=== PATIENT | male | born 1975 | race Caucasian/White ===

== ENCOUNTER → 2019-03-18 09:13 | Outpatient (BNVA) | payer MEDICARE, MEDICAID, SELFPAY | PROVIDERS: Family Provider Nurse Practitioner Family; PCP Nurse Practitioner Family; Visit Provider Nurse Practitioner Family | DX: E11.42 Type 2 diabetes mellitus with diabetic polyneuropathy (principal); E78.5 Hyperlipidemia, unspecified; I10 Essential (primary) hypertension; M25.561 Pain in right knee; G89.29 Other chronic pain | CPT/HCPCS: 80053; 80061; 82044; 82550; 83036 ==

== ENCOUNTER 2019-03-30 08:48 | Outpatient (CLI) | payer MEDICARE, MEDICAID, SELFPAY ==
--- NOTE | 2019-03-30 09:02 | XR_ITS ---
WS: [id number] KNEE LEFT TECHNIQUE: 3 views of the left knee CLINICAL INFORMATION: left knee pain COMPARISON: None. FINDINGS: Normal anatomic alignment. Intramedullary femoral jolie in place. Moderate medial and lateral joint spa ce narrowing. No acute fractures. Moderate suprapatellar effusion. Hypertrophic patella. XR/XR knee LT 3V* [id number] IMPRESSION: 1. Moderate degenerative arthritis left knee with medial and lateral joint spa ce narrowing. Hypertrophic patella. 2. Moderate suprapatellar effusion.
== END 2019-03-30 08:49 | disposition home or self-care (01) ==
LOC: RADWPI 08:52
PROVIDERS: Family Provider Nurse Practitioner Family; PCP Nurse Practitioner Family; Visit Provider Nurse Practitioner Family
DX: M17.12 Unilateral primary osteoarthritis, left knee (principal); G89.29 Other chronic pain; M25.562 Pain in left knee; M25.462 Effusion, left knee
CPT/HCPCS: 73562

== ENCOUNTER 2019-04-12 09:09 | Outpatient (CLI) | payer MEDICARE, MEDICAID, SELFPAY ==
--- NOTE | 2019-04-12 09:30 | MR_ITS ---
WS: [id number] MRI LEFT KNEE NONCONTRAST TECHNIQUE: Axial PD, coronal PD fat sat, coronal PD, sagittal PD, and sagittal PD fat-sat images obta ined. CLINICAL INFORMATION: knee COMPARISON: None. FINDINGS: Susceptibility artifact left femur due to intramedullary jolie. ACL is not visualized and likely chroni tova torn. Normal posterior cruciate ligament. Distal quadriceps and patella tendons are intact. Sli ghtly hypertrophic patella. Blunting of the posterior horn medial meniscus with complex horizontal and radial tears extending to the articular surface. This extends to the meniscal root. Additional horizontal tear in the anterior horn extending to the articular surface with blunting. Chronic thinning of the lateral meniscus. No acute appearing lateral meniscal tears. Small suprapatel lar effusion. Loculated popliteal cyst measuring 1.1 x 2.5 x 4.8 cm. Lateral collateral ligament appears intact. Fluid along the medial collateral ligament which appears intact. Moderate chondromalacia involving th e medial and lateral joint compartments with hypertrophic changes along the joint line. Small amount of subchondral edema involving the medial tibial plateau. MR/MR knee LT wo con* [id number] IMPRESSION: 1. Anterior cruciate ligament is not visualized likely chronically torn. 2. Normal posterior cruciate ligament. 3. Extensive complex tear involving the posterior horn medial meniscus extendi ng to the meniscal root and anterior horn. Lateral meniscus is better preserved . 4. Moderate chondromalacia patella with small suprapatellar effusion. 5. Moderate chondromalacia involving the medial and lateral joint compartments . 6. Fluid along the medial collateral ligament which appears intact.
== END 2019-04-12 09:10 | disposition home or self-care (01) ==
LOC: RADSHAW 09:09
PROVIDERS: Family Provider Nurse Practitioner Family; PCP Nurse Practitioner Family; Visit Provider Nurse Practitioner Family
DX: M17.12 Unilateral primary osteoarthritis, left knee (principal); S83.232A Complex tear of medial meniscus, current injury, left knee, initial encounter; X58.XXXA Exposure to other specified factors, initial encounter; M22.42 Chondromalacia patellae, left knee; M25.462 Effusion, left knee
CPT/HCPCS: 73721

== ENCOUNTER → 2019-09-08 09:07 | Outpatient (BNVA) | payer MEDICARE, MEDICAID, SELFPAY | PROVIDERS: Family Provider Nurse Practitioner Family; PCP Nurse Practitioner Family; Visit Provider Nurse Practitioner Family | DX: I10 Essential (primary) hypertension (principal); E11.42 Type 2 diabetes mellitus with diabetic polyneuropathy; Z79.899 Other long term (current) drug therapy; L84 Corns and callosities | CPT/HCPCS: 80053; 82550; 83036 ==

== ENCOUNTER 2019-10-15 13:05 | Outpatient (CLI) | payer MEDICARE, MEDICAID, SELFPAY ==
--- NOTE | 2019-10-15 13:30 | USCV_ITS ---
Sergio Kemp Age: 44 Gender: M : 1975 Exam Date: 10/15/2019 13:10 Ordering Phys: Ethan Murphy DPM Technologist: Bertha Fisher [place] [facility] [place]: SWELLING AND TENDERNESS IN LEGS HISTORY: Swelling of legs PROCEDURES: The venous duplex Doppler examination of both lower extremities was performed in the standard fashion. The following venous structures were evaluated: common femoral vein, profunda vein, proximal portion of the greater saphenous vein, superficial femoral vein, and the popliteal vein. In addition, the posterior tibial and peroneal trunk were evaluated. Serial compression, augmentation maneuvers, and spectral Doppler flow evaluation were performed. FINDINGS: No DVT seen in any vessel examined Ocampo's cyst noted Lt pop fossa CONCLUSIONS No evidence of right lower extremity DVT. No evidence of left lower extremity DVT. Popliteal cyst measuring 3.3 x 1.2cm with internal debris Jr Knowles MD (Electronically Signed) Final Date: 15 October 2019 14:23 S
== END 2019-10-15 13:06 | disposition home or self-care (01) ==
LOC: US 13:05
PROVIDERS: PCP Nurse Practitioner Family; Visit Provider Podiatrist Foot & Ankle Surgery
DX: I73.9 Peripheral vascular disease, unspecified (principal); M79.89 Other specified soft tissue disorders; M71.20 Synovial cyst of popliteal space [Baker], unspecified knee
CPT/HCPCS: 93970

== ENCOUNTER 2019-10-19 12:14 | Outpatient (CLI) | payer MEDICARE, MEDICAID, SELFPAY ==
--- NOTE | 2019-10-19 12:45 | USCV_ITS ---
Sergio Kemp Age: 44 Gender: M : 1975 Exam Date: 10/19/2019 12:42 Ordering Phys: Ethan Murphy DPM Technologist: Leonides Guerrero [place] [facility] [place]: DIABETIC PERIPHERAL NEUROPATHY RIGHT LEFT Brachial 125.00 mmHg Brachial 116.00 mmHg Pressure (mmHg) Waveform Pressure (mmHg) Waveform 131.00 Above Knee 118.00 129.00 Below Knee 122.00 122.00 WELDING OPERATOR 110.00 109.00 DPA 120.00 0.98 Ankle/Brachial Index 0.96 120.00 Pre-Exercise Toe Pressure 121.00 Pre-Exercise Toe/Brachial Index 0.97 0.96 FINDINGS Normal resting ABIs bilaterally Normal resting TBIs bilaterally Blunted dicrotic notch in the PVR waveforms CONCLUSIONS No significant arterial obstruction, based on the above findings Dr Saritha Julian MD FACC (Electronically Signed) Final Date: 21 October 2019 08:11 S
== END 2019-10-19 12:15 | disposition home or self-care (01) ==
LOC: US 12:14
PROVIDERS: PCP Nurse Practitioner Family; Visit Provider Podiatrist Foot & Ankle Surgery
DX: I73.9 Peripheral vascular disease, unspecified (principal); E11.42 Type 2 diabetes mellitus with diabetic polyneuropathy
CPT/HCPCS: 93923

== ENCOUNTER 2019-11-09 06:52 | Outpatient (CLI) | payer MEDICARE, MEDICAID, SELFPAY ==
--- NOTE | 2019-11-09 07:15 | US_ITS ---
WS: [id number] ULTRASOUND ABDOMEN LIMITED CLINICAL INFORMATION: ruq tenderness COMPARISON: None. FINDINGS: Technically difficult examination due to body habitus. Liver Size: Enlarged Craniocaudal length: 21.7 cm. Echogenicity: Normal. Surface nodularity: None. Mass (size and location): None. Bile ducts Intrahepatic ducts: Normal. Common bile duct diameter: 0.3 cm. Gallbladder Normal. Gallstones: None. Gallbladder sludge: None. Gallbladder wall thickening: None. Pericholecystic fluid: None. Sonographic David sign: Absent. Pancreas Normal as visualized. Right kidney: Normal. Hydronephrosis: None. Size: 11.2 cm x 5.9 cm x 5.9 cm. Abdominal aorta and IVC Visualized portions are normal. Ascites: None. US/US gall bladder [id number] IMPRESSION: 1. Hepatomegaly. 2. Gallbladder is normal. 3. Normal common bile duct. 4. No hydronephrosis in right kidney.
== END 2019-11-09 06:53 | disposition home or self-care (01) ==
LOC: US 06:53
PROVIDERS: PCP Nurse Practitioner Family; Visit Provider Nurse Practitioner Family
DX: R10.811 Right upper quadrant abdominal tenderness (principal); R16.0 Hepatomegaly, not elsewhere classified
CPT/HCPCS: 76705

== ENCOUNTER → 2019-11-12 11:05 | Outpatient (BNVA) | payer MEDICARE, MEDICAID, SELFPAY | PROVIDERS: PCP Nurse Practitioner Family; Visit Provider Nurse Practitioner Family | DX: R16.0 Hepatomegaly, not elsewhere classified (principal) | CPT/HCPCS: 80076; 86705; 86706; 86709; 86803; 87340 ==

== ENCOUNTER → 2019-12-06 08:48 | Outpatient (BNVA) | payer MEDICARE, MEDICAID, SELFPAY | PROVIDERS: PCP Nurse Practitioner Family; Visit Provider Internal Medicine | DX: Z11.59 Encounter for screening for other viral diseases (principal) | CPT/HCPCS: 87635 ==

== ENCOUNTER 2019-12-13 08:53 | Day surgery (SDC) | payer MEDICARE, MEDICAID, SELFPAY ==
[2019-12-13 09:09] VITALS: BP 136/85; PULSE 72; RESP 18; TEMP 36.3; O2SAT 96
--- NOTE | 2019-12-13 09:31 | W.PM.OPSUD ---
Surgery/Procedure H&P Update DATE OF PROCEDURE: December 13, 2019 DATE H&P PERFORMED: 12/02/19 PREOP DIAGNOSIS: p PLANNED PROCEDURE: Operation Date: 12/13/19 09:45 Proposed Procedures p EGD/colon [id number] R10.811(Not Applicable) - Obey Nash MD s Colonoscopy(Not Applicable) - Obey Nash MD
[2019-12-13 09:32] LABS: Glucose Point of Care 99 mg/dL (70-110)
[2019-12-13] MEDS: sodium chloride 0.9% 1,000 ML 30 ML IV (09:32)
--- NOTE | 2019-12-13 09:40 | P.ANESASSM_ITS ---
Pre-Anesthetic Assessment Pre-Anesthetic Assessment: Height/Weight: Height 1.78 m Weight 136.078 kg Temp Pulse Resp BP Pulse Ox 97.3 F L 72 18 136/85 96 12/13/19 09:09 12/13/19 09:09 12/13/19 09:09 12/13/19 09:09 12/13/19 09:09 Preop Diagnosis: hematochezia Proposed Procedure: Operation Date: 12/13/19 09:45 Proposed Procedures p EGD/colon 40021 [id number] R10.811(Not Applicable) - Obey Nash MD s Colonoscopy(Not Applicable) - Obey Nash MD Familial anesthetic complications: None Was Beta Aidan taken within 24 hours: N/A Last intake: Intake Last Liquid Date 12/12/19 Last Liquid Time 21:00 Last Solid Date 12/11/19 Last Solid Time 19:00 Social: Social History: Tobacco and No alcohol Exam: Pre-Anes Outpt Exam: alert, oriented x 3, clear to auscultation bilat erally and regular rate & rhythm Airway: Cervical ROM: WNL (limited movement to L) MP: 4 Dentition: Chipped, Loose and Other (poor dentition (patient informed of risk of dental injury)) Additional comments: full wallace Pulmonary: Pulmonary: Sleep apnea (cpap) CV/HEM: CV/HEM: HTN Hepatic: Comments: hepatomegaly GI: GI: GERD Metabolic: Metabolic: DM, Hyperlipidemia and Morbid obesity Neuropsych: Neuropsych: CVA (L side weakness) Anesthetic Plan: ASA status: 4 Anesthesia: MAC Risk of > 500 ml blood loss (7ml/kg in children): No Meds/Allergies Current Medications: Current Medications Generic Name Dose Route Start Last Admin Trade Name Freq PRN Reason Stop Dose Admin Sodium Chloride 1,000 mls @ 30 ml s/hr 12/13/19 09:15 12/13/19 09:32 Sodium Chloride 0.9% IV 30 mls/hr .Q24H ERYN Administration PFSH Anesthesia PFSH: Medical History (Updated 12/02/19 @ 13:55 by Obey Nash MD) HTN (hypertension), benign Hx of stroke without residual deficits Hyperlipemia 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
[2019-12-13 10:58] VITALS: BP 118/63; PULSE 77; RESP 16; TEMP 36.9; O2SAT 94
[2019-12-13 11:13] VITALS: BP 118/63; PULSE 75; RESP 18; O2SAT 95
--- NOTE | 2019-12-13 11:30 | ANE.PACU2 ---
Inpatient post-anesthesia follow up: Airway intact: Yes Vital signs: Temperature 98.5 F Pulse Rate 75 Respiratory Rate 18 Blood Pressure 118/63 Pulse Oximetry 95 Oxygen Delivery Me thod Room Air Oxygen Flow Rate Fraction of Inspir ed Oxygen Hydration adequate: Yes Nausea and vomiting: No Pain level: 1 Mental status: Baseline
[2019-12-14 10:07] LABS: H. Pylori / CLO Test Positive
== END 2019-12-13 11:30 | disposition home or self-care (01) ==
PROVIDERS: PCP Nurse Practitioner Family; Visit Provider Internal Medicine
PROC: 0DJ08ZZ Inspection of Upper Intestinal Tract, Via Natural or Artificial Opening Endoscopic (ICD-10-PCS; CPT 43235; principal; 2019-12-13 09:45)
PROC: 0DJD8ZZ Inspection of Lower Intestinal Tract, Via Natural or Artificial Opening Endoscopic (ICD-10-PCS; CPT 45378; 2019-12-13 09:45)
DX: R10.811 Right upper quadrant abdominal tenderness (principal); K92.1 Melena; K29.70 Gastritis, unspecified, without bleeding; G47.30 Sleep apnea, unspecified; I10 Essential (primary) hypertension; K21.9 Gastro-esophageal reflux disease without esophagitis; E78.5 Hyperlipidemia, unspecified; E66.01 Morbid (severe) obesity due to excess calories; Z68.41 Body mass index [BMI] 40.0-44.9, adult; I69.854 Hemiplegia and hemiparesis following other cerebrovascular disease affecting left non-dominant side; E11.40 Type 2 diabetes mellitus with diabetic neuropathy, unspecified; F17.210 Nicotine dependence, cigarettes, uncomplicated; Z79.84 Long term (current) use of oral hypoglycemic drugs
CPT/HCPCS: 12345; 36416; 43239; 45378; 82962; 87077; J2704; J7030

== ENCOUNTER 2020-02-21 07:49 | Outpatient (CLI) | payer MEDICARE, MEDICAID, SELFPAY ==
--- NOTE | 2020-02-21 08:00 | NM_ITS ---
WS: [id number] NUCLEAR MEDICINE HIDA SCAN WITH GALLBLADDER EJECTION FRACTION HISTORY: R10.811 - Right upper quadrant abdominal tenderness COMPARISON: Gallbladder ultrasound 11/09/2019 TECHNIQUE: The patient was intravenously injected with 7.8 mCi of TC99m Mebrofenin. Immediate imaging over the right upper quadrant was followed by 5 minute image and additional images for a total of 60 minutes. Normal uptake of radiotracer throughout the liver. Activity identified in the gallbladder at 20 minutes and well distended by 60 minutes. Activity in the proximal small bowel was seen by 15 minutes. Good washout of the radiotracer from the liver by 60 minutes. The patient then drank 8 ounces of Ensure Plus. Ejection fraction at 60 minutes was 65%. Normal GB ej ection fraction is 35-75%. Post fatty meal symptoms: None. NM/NM hepatobiliary w phar* [id number] IMPRESSION: 1. Normal HIDA scan. 2. Normal gallbladder ejection fraction.
== END 2020-02-21 07:50 | disposition home or self-care (01) ==
PROVIDERS: PCP Nurse Practitioner Family; Visit Provider Surgery
DX: R10.811 Right upper quadrant abdominal tenderness (principal)
CPT/HCPCS: 78227; A9537

== ENCOUNTER → 2020-04-05 11:36 | Outpatient (BNVA) | payer MEDICARE, MEDICAID, SELFPAY | PROVIDERS: PCP Nurse Practitioner Family; Visit Provider Nurse Practitioner Family | DX: E55.9 Vitamin D deficiency, unspecified (principal); R60.0 Localized edema; I10 Essential (primary) hypertension; E11.42 Type 2 diabetes mellitus with diabetic polyneuropathy; I89.0 Lymphedema, not elsewhere classified | CPT/HCPCS: 80053; 82306; 83036; 83880 ==

== ENCOUNTER 2020-04-26 06:00 | Outpatient (RCR) | payer MEDICARE, MEDICAID, SELFPAY | END 2020-04-30 23:59 | disposition home or self-care (01) | LOC: SPT 06:00 | PROVIDERS: PCP Nurse Practitioner Family; Referring Provider Nurse Practitioner Family; Visit Provider Nurse Practitioner Family | DX: I89.0 Lymphedema, not elsewhere classified (principal) | CPT/HCPCS: 97140; 97162 ==

== ENCOUNTER 2020-05-01 06:00 | Outpatient (RCR) | payer MEDICARE, MEDICAID, SELFPAY | END 2020-05-31 23:59 | disposition home or self-care (01) | LOC: SPT 06:00 | PROVIDERS: PCP Nurse Practitioner Family; Referring Provider Nurse Practitioner Family; Visit Provider Nurse Practitioner Family | DX: I89.0 Lymphedema, not elsewhere classified (principal) | CPT/HCPCS: 97140 ==

== ENCOUNTER → 2020-07-07 08:40 | Outpatient (BNVA) | payer MEDICARE, MEDICAID, SELFPAY | PROVIDERS: PCP Nurse Practitioner Family; Visit Provider Nurse Practitioner Family | DX: E11.9 Type 2 diabetes mellitus without complications (principal); I10 Essential (primary) hypertension | CPT/HCPCS: 80053; 82043; 83036 ==

== ENCOUNTER → 2021-03-16 11:43 | Outpatient (BNVA) | payer MEDICARE, MEDICAID, SELFPAY | PROVIDERS: PCP Nurse Practitioner Family; Visit Provider Nurse Practitioner Family | DX: I10 Essential (primary) hypertension; E78.5 Hyperlipidemia, unspecified; E55.9 Vitamin D deficiency, unspecified; E11.42 Type 2 diabetes mellitus with diabetic polyneuropathy | CPT/HCPCS: 80053; 80061; 82306; 83036 ==

== ENCOUNTER → 2021-06-15 10:08 | Outpatient (BNVA) | payer MEDICARE, MEDICAID, SELFPAY | PROVIDERS: PCP Nurse Practitioner Family; Visit Provider Nurse Practitioner Family | DX: I10 Essential (primary) hypertension (principal); E11.9 Type 2 diabetes mellitus without complications; E78.5 Hyperlipidemia, unspecified; E11.42 Type 2 diabetes mellitus with diabetic polyneuropathy | CPT/HCPCS: 80053; 80061; 83036 ==

== ENCOUNTER → 2021-10-11 09:26 | Outpatient (BNVA) | payer MEDICARE, MEDICAID, SELFPAY | PROVIDERS: PCP Nurse Practitioner Family; Visit Provider Nurse Practitioner Family | DX: E11.9 Type 2 diabetes mellitus without complications (principal); I10 Essential (primary) hypertension; E55.9 Vitamin D deficiency, unspecified; E11.42 Type 2 diabetes mellitus with diabetic polyneuropathy; E78.5 Hyperlipidemia, unspecified | CPT/HCPCS: 80053; 80061; 82043; 82306; 83036 ==

== ENCOUNTER → 2022-03-13 09:43 | Outpatient (BNVA) | payer MEDICARE, MEDICAID, SELFPAY | PROVIDERS: PCP Nurse Practitioner Family; Visit Provider Nurse Practitioner Family | DX: E55.9 Vitamin D deficiency, unspecified (principal); E78.5 Hyperlipidemia, unspecified; I10 Essential (primary) hypertension; E11.9 Type 2 diabetes mellitus without complications | CPT/HCPCS: 80053; 80061; 82043; 82306; 83036 ==

== ENCOUNTER → 2022-09-19 11:17 | Outpatient (BNVA) | payer MEDICARE, MEDICAID, SELFPAY | PROVIDERS: PCP Nurse Practitioner Family; Visit Provider Nurse Practitioner Family | DX: E78.5 Hyperlipidemia, unspecified (principal); E11.42 Type 2 diabetes mellitus with diabetic polyneuropathy; I10 Essential (primary) hypertension; E55.9 Vitamin D deficiency, unspecified | CPT/HCPCS: 80053; 80061; 82306; 83036; 85025 ==

== ENCOUNTER → 2022-10-21 08:34 | Outpatient (BNVA) | payer MEDICARE, MEDICAID, SELFPAY | PROVIDERS: PCP Nurse Practitioner Family; Visit Provider Nurse Practitioner Family | DX: E87.6 Hypokalemia (principal) | CPT/HCPCS: 80053 ==

== ENCOUNTER 2023-02-10 12:39 | Outpatient (CLI) | payer MEDICARE, MEDICAID, SELFPAY ==
--- NOTE | 2023-02-10 13:00 | MR_ITS ---
WS: [id number] MRI LEFT SHOULDER HISTORY: S49.92XA - Unspecified injury of left shoulder and upper ... COMPARISON: None available. TECHNIQUE: Multiplanar sequences of the shoulder joint are submitted. Quality of this examination is significantly compromised by motion on all sequences. Severe AC joint arthritis encroaching upon the myotendinous insertion of the supraspinatus. Bone and soft tissue hypertrophy and narrowing of the AC joint. Moderate subacromial impingement. No os acromi on. Biceps tendon is not placed normally in the bicipital groove. Mildly high riding humeral head. Mild distal supraspinatus tendinopathy. No muscle atrophy or edema. The subscapularis tendon is abnormal. Severe narrowing of the coracohumeral interval. Suspect there i s at least partial tear of the subscapularis tendon. There is increased edema surrounding the subscap ularis tendon at the level of the coracohumeral interval. There is an osteophyte from the humeral hea d displacing the subscapularis tendon. There is a small glenohumeral joint effusion. Increased T2 signal in the anterior and superior labrum . IMPRESSION: 1. Quality of this examination is significantly compromised by motion artifact on all sequences. 2. Severe AC joint arthritis with soft tissue and osteophyte encroachment upon the myotendinous porti on of the supraspinatus. 3. Distal supraspinatus tendinopathy. 4. At least a partial tear in the distal subscapularis tendon with marked narrowing of the coracohume ral interval. 5. Dislocated biceps tendon. 6. Anterior superior labrum tears.
== END 2023-02-10 12:40 | disposition home or self-care (01) ==
LOC: RAD 12:39
PROVIDERS: PCP Nurse Practitioner Family; Visit Provider Nurse Practitioner Family
DX: S46.812A Strain of other muscles, fascia and tendons at shoulder and upper arm level, left arm, initial encounter (principal); S43.432A Superior glenoid labrum lesion of left shoulder, initial encounter; X58.XXXA Exposure to other specified factors, initial encounter; M19.012 Primary osteoarthritis, left shoulder; M25.712 Osteophyte, left shoulder; M67.814 Other specified disorders of tendon, left shoulder
CPT/HCPCS: 73221

== ENCOUNTER → 2023-03-17 11:22 | Outpatient (BNVA) | payer MEDICARE, MEDICAID, SELFPAY | PROVIDERS: PCP Nurse Practitioner Family; Referring Provider Nurse Practitioner Family; Visit Provider Specialist | DX: S49.92XA Unspecified injury of left shoulder and upper arm, initial encounter; X50.0XXA Overexertion from strenuous movement or load, initial encounter | CPT/HCPCS: 73030; 99204 ==

== ENCOUNTER 2023-03-31 06:00 | Outpatient (RCR) | payer MEDICARE, MEDICAID, SELFPAY | END 2023-04-02 23:59 | disposition home or self-care (01) | LOC: APT 06:00 | PROVIDERS: Visit Provider Specialist | DX: M25.512 Pain in left shoulder (principal) | CPT/HCPCS: 97110; 97161 ==

== ENCOUNTER 2023-04-03 06:00 | Outpatient (RCR) | payer MEDICARE, MEDICAID, SELFPAY | END 2023-05-01 23:59 | disposition home or self-care (01) | LOC: APT 06:00 | PROVIDERS: Visit Provider Specialist | DX: M25.512 Pain in left shoulder (principal) | CPT/HCPCS: 97110; 97112; 97140; 97530 ==

== ENCOUNTER 2023-04-10 12:51 | Outpatient (CLI) | payer MEDICARE, MEDICAID, SELFPAY ==
--- NOTE | 2023-04-10 12:56 | MR_ITS ---
WS: [id number] MRI LEFT SHOULDER ARTHROGRAM, pre and post arthrogram imaging. HISTORY: left shoulder injury COMPARISON: Prior MRI 02/10/2023 TECHNIQUE: Pre and postcontrast imaging. Gadolinium mixture was injected under fluoroscopy. Coronal T 1 fat sat, sagittal T2 fat sat, coronal T2 fat sat, axial proton density, axial T1 nonfat saturation views are submitted. Prearthrogram: Severe AC joint arthritis with encroachment upon the myotendinous portion of the supra spinatus. AC joint is narrowed and contains fluid. Mild subacromial impingement. Biceps tendon is not located in the bicipital groove. Biceps tendon is external to the groove consistent with the disloca seven tendon with increased fluid in the tendon sheath. No os acromion. No muscle atrophy or tendinopat hy. No edema. Thin linear area of increased signal within the superior labrum. Post arthrogram: Good contrast injection of the joint. There is no extravasation of contrast other th an along the expected needle tract. There is no rotator cuff tear identified. Reidentified is the dis located biceps tendon. There is a very tiny amount of increased T2 signal extending into the superior labrum consistent with a focal localized tear. IMPRESSION: 1. Severe AC joint arthritis with encroachment upon the myotendinous portion of the supraspinatus. 2. No rotator cuff tear. 3. Dislocated biceps tendon with increased fluid in the tendon sheath. 4. Very small focal superior labral tear with adjacent edema in the soft tissues.
== END 2023-04-10 12:52 | disposition home or self-care (01) ==
LOC: RAD 12:51
PROVIDERS: Visit Provider Specialist
DX: S49.92XD Unspecified injury of left shoulder and upper arm, subsequent encounter (principal); X58.XXXD Exposure to other specified factors, subsequent encounter
CPT/HCPCS: 23350; 73223; 77002; 80053; 80061; 83036; 85025; A9577; Q9966

== ENCOUNTER 2023-05-02 06:00 | Outpatient (RCR) | payer MEDICARE, MEDICAID, SELFPAY | END 2023-06-01 23:59 | disposition home or self-care (01) | LOC: APT 06:00 | PROVIDERS: PCP Nurse Practitioner Family; Visit Provider Specialist | DX: S46.112A Strain of muscle, fascia and tendon of long head of biceps, left arm, initial encounter (principal); X50.0XXA Overexertion from strenuous movement or load, initial encounter; M75.52 Bursitis of left shoulder; M19.012 Primary osteoarthritis, left shoulder | CPT/HCPCS: 97110; 97112; 97530; 99214 ==

== ENCOUNTER 2023-06-12 11:58 | Day surgery (SDC) | payer MEDICARE, MEDICAID, SELFPAY ==
[2023-06-12] VITALS (10 sets, daily range): BP systolic 105–151; BP diastolic 60–86; PULSE 56–82; RESP 17–22; TEMP 36.2–36.6; O2SAT 91–96; BMI 43.7
[2023-06-12] MEDS: acetaminophen 1,000 MG/100 ML PIGGYBACK 400 MG IV (12:23)
[2023-06-12] MEDS: ketorolac 30 mg/mL INJ IVP (12:24)
[2023-06-12] MEDS: sodium chloride 0.9% 1,000 ML 30 ML IV (12:24)
[2023-06-12] MEDS: scopolamine 1.5 Patch 1 PATCH TRANSDERMA (12:25)
--- NOTE | 2023-06-12 12:57 | W.PM.OPSFHP ---
Same Day Surgery H&P Indication for Procedure/HPI DATE OF PROCEDURE: June 12, 2023 CHIEF COMPLAINT/INDICATIONFOR SURGICAL PROCEDURE: Left shoulder dislocating bicep tendon tear,, AC joint arthritis, subacromial impingement labral tear PREOP DIAGNOSIS: Left shoulder dislocating bicep tendon tear,, AC joint arthritis, subacromi PLANNED PROCEDURE: Operation Date: 06/12/23 14:15 Proposed Procedures p Bicep Tenotomy versus tenodesis(Left) - Vargas Villalta DO s AC Joint Resection/ reconstruction(Left) - DO shahram Katz Subacromial Decompression(Left) - DO shahram Katz Shoulder Arthroscopy(Left) - Vargas Villalta DO Medications/Allergies* Home Medications Medication Instructions Recorded Confirmed Type cholecalciferol (vitamin D3) 50 50 mcg PO DAILY 12/13/19 06/11/23 History mcg (2,000 unit) tablet (Vitamin D3) aspirin 81 mg tablet,delayed 81 mg PO DAILY 01/03/20 06/11/23 History release (Adult Aspirin Regimen) empagliflozin 25 mg tablet 25 mg PO DAILY 06/11/23 06/11/23 History (Jardiance) esomeprazole magnesium 40 mg 40 mg PO DAILY 06/11/23 06/11/23 History capsule,delayed release furosemide 40 mg tablet 40 mg PO DAILY 06/11/23 06/11/23 History lisinopril 20 mg tablet 20 mg PO BID 06/11/23 06/11/23 History lovastatin 40 mg tablet 40 mg PO DAILY 06/11/23 06/11/23 History nifedipine 60 mg tablet,extended 60 mg PO DAILY 06/11/23 06/12/23 History release potassium chloride 20 mEq 20 meq PO DAILY 06/11/23 06/11/23 History tablet,extended release Allergies/Adverse Reactions Allergy/AdvReac Type Severity Reaction Status Date / Time No Known Allergies Allergy Verified 06/12/23 12:13 Current Medications: Generic Name Dose Route Start Last Admin Trade Name Freq PRN Reason Stop Dose Admin Sodium Chloride 1,000 mls @ 30 mls/hr 06/12/23 12:15 06/12/23 12:24 Sodium Chloride 0.9% IV 06/13/23 12:14 30 mls/hr .Q24H ERYN Administration Pertinent History/Comorbid Conditions* Medical History (Updated 05/06/23 @ 22:22 by Vargas Villalta DO) HTN (hypertension), benign Hx of stroke without residual deficits Hyperlipemia 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 Surgical History (Updated 02/08/20 @ 15:26 by Cy Lopez MD) H/O circumcision H/O facial fracture repair H/O carpal tunnel repair left with ganglion cyst removal H/O esophagogastroduodenoscopy 2019 History of appendectomy 2019 H/O colonoscopy History of hip surgery Family History (Updated 02/08/20 @ 15:11 by Pat Otto LPN) Diabetes CAD (coronary artery disease) Cancer Hypertension Denies family history of Anesthesia complication Bleeding disorder Social History Smoking and tobacco/nicotine status: former use of tobacco/nicotine Alcohol intake: former Substance/Drug Use: current Substance/Drug use frequency: daily Adopted: No Lives independently: Yes Household members: none Housing: House Marital status: Single Number of children: 1 service: No Pertinent Exam Findings alert, oriented x 3, operative site marked and procedure specific exam findings Please refer to last office note on 05/02/2023 for detailed orthopedic examination: Shoulder exam: C-Spine ROM: normal with no pain Spurlings: negative ROM: Passive up to 180 Active [id number] TTP AC joint, over bicipital groove as well as lateral and posterior aspect of the shoulder Internal Rotation 5 out of 5 with elbows at the side External Rotation 5 out of 5 with elbows at the side O'Briens: Positive Jobes: Pain with Jobes but good strength Vasquez Impingement: Positive Speeds Test: Positive Crossover/Neers test: Positive with tenderness over AC joint Recommendations Surgery/Procedure today Other Plans: Plan to proceed to the OR today for left shoulder diagnostic and surgical arthroscopy with subacromial decompression, AC joint resection and biceps tenotomy versus tenodesis. Patient understands the ins and outs procedure, the risk benefits complication alternatives of surgery and through shared decision make elects proceed with surgical intervention. All questions answered. Coding Level of Care Code Acute Code for Teo Quinonez
[2023-06-12 12:59] LABS: Anion Gap 15.5 (5-19); Blood Urea Nitrogen 12 mg/dL (6-20); Calcium 9.1 mg/dL (8.5-10.5); Carbon Dioxide 25 mmol/L (22-29); Chloride 104 mmol/L (98-107); Creatinine Clr Calc Pharmacy 250.5998; Glomerular Filtration Rate 176.7 mL/min (90-130); Glucose 121 mg/dL (65-115); Osmolality Calculated 293 mOsm/kg (285-295); Potassium 3.5 mmol/L (3.5-5.1); Sodium 141 mmol/L (136-145)
--- NOTE | 2023-06-12 13:19 | P.ANESASSM_ITS ---
Pre-Anesthetic Assessment Height/Weight: Height 1.78 m Weight 138.346 kg Temp Pulse Resp BP Pulse Ox O2 Del Method 97.8 F 82 18 151/86 94 Room Air 06/12/23 12:11 06/12/23 12:11 06/12/23 12:11 06/12/23 12:11 06/12/23 12:11 06/12/23 12:14 Preop Diagnosis: Left shoulder dislocating bicep tendon tear,, AC joint arthritis, subacromi Operation Date: 06/12/23 14:15 Proposed Procedures p Bicep Tenotomy versus tenodesis(Left) - Vargas [place], DO s AC Joint Resection/ reconstruction(Left) - Vargas [place], DO s Subacromial Decompression(Left) - Vargas [place], DO s Shoulder Arthroscopy(Left) - Vargas [place], DO Familial anesthetic complications: none Was Beta Aidan taken within 24 hours: N/A Was Clonidine taken within 24 hours: N/A Last intake: Intake Last Liquid Date 06/12/23 Last Liquid Time 08:00 Last Solid Date 06/11/23 Last Solid Time 20:30 Social No alcohol and No tobacco Exam alert, oriented x 3, clear to auscultation bilaterally and regular rate & rhythm Airway Submandibular: within normal limits Cervical ROM: within normal limits Mallampati: Class II Dentition: chipped Comments: Comments: Very poor dentition, most chipped or missing, wallace Pulmonary Asthma and Chronic Obstructive Pulmonary Disease CV/HEM Hypertension Metabolic Diabetes Mellitus, Hyperlipidemia and Morbid Obesity Anesthetic Plan ASA status: 3 Anesthesia: General and Regional (specify below) (Left interscalene nerve blk) Medications/Allergies Home Medications Medication Instructions Recorded Confirmed Last Taken Type blood-glucose meter (Blood Glucose #1 ea 03/18/19 05/02/23 Unknown Rx Monitoring kit) cholecalciferol (vitamin D3) 50 50 mcg PO DAILY 12/13/19 06/11/23 06/11/23 History mcg (2,000 unit) tablet (Vitamin D3) aspirin 81 mg tablet,delayed 81 mg PO DAILY 01/03/20 06/11/23 06/06/23 History release (Adult Aspirin Regimen) empagliflozin 25 mg tablet 25 mg PO DAILY 06/11/23 06/11/23 06/11/23 History (Jardiance) esomeprazole magnesium 40 mg 40 mg PO DAILY 06/11/23 06/11/23 06/11/23 History capsule,delayed release furosemide 40 mg tablet 40 mg PO DAILY 06/11/23 06/11/23 06/10/23 History lisinopril 20 mg tablet 20 mg PO BID 06/11/23 06/11/23 06/11/23 History lovastatin 40 mg tablet 40 mg PO DAILY 06/11/23 06/11/23 06/10/23 History nifedipine 60 mg tablet,extended 60 mg PO DAILY 06/11/23 06/12/23 06/12/23 06:00 History release potassium chloride 20 mEq 20 meq PO DAILY 06/11/23 06/11/23 06/11/23 History tablet,extended release hydrocodone 7.5 mg-acetaminophen 1 tab PO Q6H PRN pain postop 7 06/12/23 Unknown Rx 325 mg tablet days #28 tabs Allergies Allergy/AdvReac Type Severity Reaction Status Date / Time No Known Allergies Allergy Verified 06/12/23 12:13 Current Medications Generic Name Dose Route Start Last Admin Trade Name Freq PRN Reason Stop Dose Admin Sodium Chloride 1,000 mls @ 30 mls/hr 06/12/23 12:15 06/12/23 12:24 Sodium Chloride 0.9% IV 06/13/23 12:14 30 mls/hr .Q24H ERYN Administration PFSH Anesthesia Medical History HTN (hypertension), benign Hx of stroke without residual deficits Hyperlipemia 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 Surgical History H/O circumcision H/O facial fracture repair H/O carpal tunnel repair left with ganglion cyst removal H/O esophagogastroduodenoscopy 2019 History of appendectomy 2019 H/O colonoscopy History of hip surgery Family History Other CAD (coronary artery disease) Cancer Diabetes Hypertension Denies family history of Anesthesia complication Bleeding disorder Social History (Updated 05/02/23 @ 10:03 by Bev Feng LPN) Smoking and tobacco/nicotine status: former use of tobacco/nicotine Alcohol intake: former Substance/Drug Use: current Substance/Drug use frequency: daily Adopted: No Lives independently: Yes Household members: none Housing: House Marital status: Single Number of children: 1 service: No Data Anesthesia 06/12/23 12:20 BMP 06/12/23 12:20 Sodium 141 Potassium 3.5 Chloride 104 Carbon Dioxide 25 BUN 12 Creatinine 0.5 L Glucose 121 H Calcium 9.1 Cardiac Studies: 2 No Data to Display Anesthesia Procedures Nerve Block Nerve Block 1: Main Anesthesia: general anesthesia Time Out Performed: Yes Consent: requested by attending/covering physician, from patient, risks and benefits reviewed and patient agrees to proceed Nerve block location: interscalene (left) Anesthesia monitors applied: pulse oximetry, EKG, BP cuff and oxygen Nerve block position: semi sitting Anesthetic Used: ropivicaine 0.5% Amount of anesthesia used (mL): 0 Ultrasound used to: recognize landmarks and visualize and ID brachial plexus Nerve Stimulator Used?: Yes Interscalene/Femoral BLK: 2 stimuplex 22 g needle used for position and inplane approach Patient Tolerated Procedure: well Additional Comments: Attempted left interscalene blk with US and nerve stimulator without success, could not visualize appropriate neural structures nor illicit a stimulator response, patient tolerated well.
[2023-06-12] MEDS: ceFAZolin 3,000 MG in sodium chloride 0.9% (plus) 100 ML 200 MG IV (13:20)
[2023-06-12] MEDS: EPINEPHrine 1 mg/mL INJ 2 MG XX (14:28)
--- NOTE | 2023-06-12 15:27 | P.BOP_ITS ---
Date of Procedure: [06/12/2023] Surgeon: Vargas Villalta DO Stave Cutting Supervisor(s): None Procedure(s) performed: Left shoulder diagnostic and surgical arthroscopy with biceps tenodesis Left shoulder diagnostic and surgical arthroscopy with labral debridement Left shoulder diagnostic and surgical arthroscopy with subacromial decompression (bursectomy and acromioplasty) Left shoulder diagnostic and surgical arthroscopy with AC joint resection (distal clavicle excision) Findings of the procedure(s): Patient found to have unstable bicep anchor with SLAP tear significant inflammation around the bicep tendon underwent bicep tenodesis without any issues or complications patient had procedure went as planned with no issues or complications. Placed in an UltraSling and will be nonweightbearing no active range of motion left shoulder for the next 2 weeks follow-up in 2 weeks. Estimated blood loss: 5 mm Specimen(s) removed: None Post-operative diagnosis: Left shoulder SLAP tear with long head bicep tendon instability, subacromial impingement, circumferential labral tearing, AC joint arthritis
--- NOTE | 2023-06-12 15:29 | P.OP_ITS ---
Operative Report Date of procedure: June 12, 2023 Surgeon: Vargas Villalta DO Procedure: Preoperative diagnosis: Left shoulder bicep tendon tear/instability Superior labral tear Subacromial impingement AC joint arthritis post-op diagnosis:? Left?shoulder?labral tear Left?shoulder?biceps tendon tear Left?shoulder?AC joint arthritis Left?shoulder?subacromial bursitis/impingement Procedure done: Left shoulder diagnostic and surgical arthroscopy with biceps tenodesis Left shoulder diagnostic and surgical arthroscopy with labral debridement Left shoulder diagnostic and surgical arthroscopy with subacromial decompression (bursectomy and acromioplasty) Left shoulder diagnostic and surgical arthroscopy with AC joint resection (distal clavicle excision) Surgeon: Vargas Villalta DO Estimated blood loss: [5 ]mL IV fluids: See anesthesia record Implants: Arthrex Biceps Tenodesis intra-articular loop and tack kit Complications: None Condition: stable Disposition: same day Brief History: Patient been seen and worked up in the outpatient setting for Left?shoulder?pain.? Pt had an MRI which showed findings below.? Patient's failed conservative treatment and has weakness.? We talked about treatment options far as nonoperative and operative intervention..? We talked about risk benefits complication alternatives surgical nonsurgical treatment options.? Understanding risk of surgery pt agrees to proceed with surgical intervention.? All questions have been answered at this time.? Patient elects proceed with surgery and consent obtained in office. IMPRESSION: 1. Severe AC joint arthritis with encroachment upon the myotendinous portion of the supraspinatus. 2. No rotator cuff tear. 3. Dislocated biceps tendon with increased fluid in the tendon sheath. 4. Very small focal superior labral tear with adjacent edema in the soft tissues. Procedure: Patient seen evaluated in the preoperative holding area.? Consent reviewed and signed with patient.? Once again reviewed patient's MRI results as well as? planned surgical intervention.? Correct extremity marked.? Patient seen evaluated by anesthesia department received regional anesthesia.? Once ready for surgery was taken back to the operative suite.? Patient then subsequently underwent anesthesia per the anesthesia department was transported onto the OR table.? Patient was then placed into a lateral decubitus position with a beanbag and was appropriately secured to the bed.? All bony prominences well-padded.? Patient then had the Left upper extremity was then prepped and draped in stand yoly orthopedic fashion.? Patient received appropriate preoperative antibiotics.? Final timeout performed. The Left upper extremity was then held in hanging from traction utilizing sterile technique.? Next started with standard diagnostic and surgical arthroscopy with posterior portal position introduced arthroscope into the glenohumeral joint.? Visualized the glenohumeral joint I then introduced a spinal needle within the rotator cuff interval to confirm appropriate anterior portal placement.? Once this was confirmed I then made my small incision and then introduced my arthroscopic shaver into the glenohumeral joint.? After thorough debridement was clearly evident patient had a significant erythema as well as positive liftoff sign of the biceps anchor intact intra-articular biceps tendon but noticeable bicep tendon instability. Given patient's age as well as instability bicep tendon and SLAP tear of the labrum plan for a bicep tenodesis. After flushing the joint fluid, was clearly evident patient had biceps tendon tearing as well as Superior labral tear. Patient had appreciable unstable biceps anchor most pronounced in the superior labrum. Given there appears to be healthy intra-articular tendon plan was for an intra-articular biceps tenodesis at the superior portion as it enters the intertubercular groove. Thermal wand introduced into the rotator interval. I then release of the rotator interval to have appropriate visualization and the ability to perform biceps tenodesis. At this point I established a purple passport cannula which was introduced. Next I performed an Arthrex loop and tap biceps tenodesis. Passer was then made around the tendon luggage tag stitch around and then thru the tendon and around twice I then utilized a thermal wand to release the biceps tendon at the anchor to perform with tenotomy. I then loaded with suture onto an Arthrex 4.75 swivel lock suture anchor. A punch was then placed in appropriate position at the entry point into the intertubercular groove just superior to the subscapularis tendon. Punch was then introduced to the appropriate depth. The suture loaded on the swivel lock was then advanced held under appropriate tension and shoulder lock anchor was then advanced and had excellent fixation. Excess suture was then cut biceps tenodesis was complete. I then utilized a thermal wand to seal the edges of the superior labrum. Introduced a thermal wand and a biceps tenotomy was performed to completion With appropriate release.? Next I evaluated the subscapularis tendon which was intact and no evidence of t ear. ?Next there was significant labral tearing at biceps anchor and circumferential.? ? I then subsequently utilized a a arthroscopic shaver and thermal wand to perform a labral debridement.? This point time I then visualized the glenohumeral joint.? The glenohumeral joint was found to have grade 1-2? chondromalacia throughout.? Infrapatellar pouch was free of loose bodies from viewing the posterior portal.? Rotator cuff was inspected superiorly and found to have negative escape bubble sign and no evidence of rotator cuff tendon tear was noted. ?This completed my work within the glenohumeral joint all fluid was suctioned free of the joint.? ?Next I reintroduced the arthroscope posteriorly.? And went to the subacromial space.? I established my lateral working portal at the site of which my spinal needle was marking of the rotator cuff tear.? Thermal wand was then introduced laterally and then I subsequently performed extensive bursectomy of the subacromial space.? Patient had a large anterior bone spur.? At this point time I proceeded with my AC joint resection thermal wand was used and track to the anterior edge of the acromion and then tracked all the way to the AC joint.? On ce identified the AC joint this was very arthritic in nature.? Thermal wand was placed anteriorly to establish appropriate plane for AC joint resection.? Once appropriate margins and anterior inferior and anterior capsule was released I then introduced arthroscopic shaver and a bur and performed AC joint resection of both the acromion to co- plane at the AC joint and a distal clavicle resection was then performed totaling 1 cm in size and was confirmed.? This completed my AC joint resection and I then introduced the arthroscopic shaver laterally while continuing to view posteriorly.? I then performed an acromioplasty to complete my subacromial decompression.? This completed subacromial decompression I then utilized arthroscopic shaver to debride the bursa completely and had direct visualization of the rotator cuff tendon which was found to be intact ?I then switched the arthroscope to the lateral portal and once again confirmed appropriate subacromial decompression of anterior spurring and subacromial impingement as well as confirming no evidence of rotator cuff tear. ?? This completed the surgery.? All fluid was suctioned from the?shoulder.? All instruments were removed.? The lateral incision was then closed with nylon stitches.? As well as the portal sites closed with portal nylon stitches.? Xeroform 4 x 4's ABD and tape was then applied to the Left?shoulder?and was pl aced into a?shoulder?abduction pillow sling for bicep tenodesis.? Patient was then awakened from anesthesia and then taken back to PACU in stable condition.? Patient tolerated procedure without any issues. Disposition: Patient taken back in stable condition recovering well.? Dressings on in place clean dry and intact.? Will be nonweightbearing to the Left upper extremity.? Follow bicep tenodesis protocol.? Patient to follow-up with me in the office in 2 weeks.? Patient will receive appropriate discharge instruction as well as pain medication postoperatively.? All questions answered.? We will contact the office for any questions or concerns.
[2023-06-12] MEDS: HYDROcodone-acetaminophen 7.5-325 mg Tablet 1 TAB PO (16:05)
--- NOTE | 2023-06-12 16:24 | SUR.PREOP ---
1300-Time out was performed at bedside in [facility]PS for a block with Dr Masterson. Block was not completed as anatomy was not suited for providing image on ultrasound for administering block.
--- NOTE | 2023-06-12 17:24 | ANE.PACU2 ---
Inpatient post-anesthesia follow up: Airway intact: Yes Vital signs: Temperature 97.4 F Pulse Rate 73 Respiratory Rate 18 Blood Pressure 143/70 Pulse Oximetry 93 Oxygen Delivery Me thod Room Air Oxygen Flow Rate 2 Fraction of Inspir ed Oxygen Hydration adequate: Yes Nausea and vomiting: No Pain level: 3 Mental status: Baseline
[2023-06-13 09:11] LABS: Glucose Point of Care 119 mg/dL (70-110)
== END 2023-06-12 16:55 | disposition home or self-care (01) ==
PROVIDERS: Anesthesiology; PCP Nurse Practitioner Family; Visit Provider Student in an Organized Health Care Education/Training Program
PROC: (CPT 23405; principal; 2023-06-12 13:55)
PROC: 0RSH0ZZ Reposition Left Acromioclavicular Joint, Open Approach (ICD-10-PCS; CPT 29823; 2023-06-12 13:55)
PROC: (CPT 29826; 2023-06-12 13:55)
PROC: (CPT 29805; 2023-06-12 13:55)
DX: S43.402A Unspecified sprain of left shoulder joint, initial encounter (principal); S46.112A Strain of muscle, fascia and tendon of long head of biceps, left arm, initial encounter; M19.012 Primary osteoarthritis, left shoulder; M75.52 Bursitis of left shoulder; Z79.82 Long term (current) use of aspirin; I10 Essential (primary) hypertension; Z86.73 Personal history of transient ischemic attack (TIA), and cerebral infarction without residual deficits; E78.5 Hyperlipidemia, unspecified; E11.42 Type 2 diabetes mellitus with diabetic polyneuropathy; X58.XXXA Exposure to other specified factors, initial encounter; Z87.891 Personal history of nicotine dependence; J44.9 Chronic obstructive pulmonary disease, unspecified
CPT/HCPCS: 29823; 29824; 29828; 36416; 80048; 82962; C1713; J0131; J0171; J0330; J0690; J1100; J1170; J1885; J2405; J2704; J2795; J3010; J3490; J7030

== ENCOUNTER → 2023-07-03 13:47 | Outpatient (BNVA) | payer MEDICARE, MEDICAID, SELFPAY | PROVIDERS: PCP Nurse Practitioner Family; Visit Provider Physician Assistant | DX: Z98.890 Other specified postprocedural states (principal) | CPT/HCPCS: 99024 ==

== ENCOUNTER 2023-07-14 06:00 | Outpatient (RCR) | payer MEDICARE, MEDICAID, SELFPAY | END 2023-08-01 23:59 | disposition home or self-care (01) | LOC: APT 06:00 | PROVIDERS: Visit Provider Physician Assistant | DX: Z98.890 Other specified postprocedural states (principal) | CPT/HCPCS: 97110; 97112; 97140; 97162; 97530 ==

== ENCOUNTER → 2023-07-16 09:01 | Outpatient (BNVA) | payer MEDICARE, MEDICAID, SELFPAY | PROVIDERS: Visit Provider Nurse Practitioner Family | DX: I10 Essential (primary) hypertension (principal); E11.9 Type 2 diabetes mellitus without complications; G47.33 Obstructive sleep apnea (adult) (pediatric); E11.42 Type 2 diabetes mellitus with diabetic polyneuropathy | CPT/HCPCS: 80053; 80061; 83036 ==

== ENCOUNTER 2023-08-02 06:00 | Outpatient (RCR) | payer MEDICARE, MEDICAID, SELFPAY | END 2023-08-31 23:59 | disposition home or self-care (01) | LOC: APT 06:00 | PROVIDERS: Visit Provider Physician Assistant | DX: Z98.890 Other specified postprocedural states (principal) | CPT/HCPCS: 97110; 97112; 97140; 97530 ==

== ENCOUNTER → 2023-08-07 13:20 | Outpatient (BNVA) | payer MEDICARE, MEDICAID, SELFPAY | PROVIDERS: Visit Provider Physician Assistant | DX: Z98.890 Other specified postprocedural states (principal) | CPT/HCPCS: 99024 ==

== ENCOUNTER 2023-09-01 06:00 | Outpatient (RCR) | payer MEDICARE, MEDICAID, SELFPAY | END 2023-09-06 23:59 | disposition home or self-care (01) | LOC: APT 06:00 | PROVIDERS: Visit Provider Physician Assistant | DX: Z98.890 Other specified postprocedural states (principal) | CPT/HCPCS: 97110 ==